=== PATIENT | male | born 1960 | race Caucasian/White ===

== ENCOUNTER 2017-02-01 10:54 | Inpatient (IN) | payer MEDICAID ==
[~2017-02-01] VITALS: Ht 182.9 cm; Wt 107.0 kg
[2017-02-01 11:43] LABS: BASOPHIL % 0.3 % (0-2); PLATELET COUNT 263 x10^3mcL (130-400); RED CELL DISTRIBUTION WIDTH 13.9 % (11.5-14.5)
[2017-02-01 11:50] LABS: CALCIUM 8.2 mg/dL (8.5-10.1); CARBON DIOXIDE 20.6 mmol/L (21-32); CHLORIDE SERUM 103 mmol/L (98-107); CREATININE SERUM 1.1 mg/dL (0.7-1.3); GFR1 > 60 mL/min; GLUCOSE SERUM 123 mg/dL (74-106); POTASSIUM SERUM 3.9 mmol/L (3.5-5.1); SODIUM SERUM 134 mmol/L (136-145)
[2017-02-01 11:56] LABS: ALKALINE PHOSPHATASE 103 U/L (46-116); ALT/SGPT 55 U/L (16-63); AST/SGOT 39 U/L (15-37); BILIRUBIN TOTAL 1.2 mg/dL (0.20-1.00); TOTAL PROTEIN, SERUM 6.9 g/dL (6.4-8.2)
[2017-02-01 11:57] LABS: ALBUMIN 3.2 g/dL (3.4-5.0)
[2017-02-01 13:04] LABS: microscopic required? YES; urine erythrocyte TRACE (NEGATIVE)
[2017-02-01 15:04] VITALS: BP 165/102
[2017-02-01 16:15] LABS: CHOLESTEROL/HDL RATIO 2.3; MAGNESIUM 1.6 mg/dL (1.8-2.4); PHOSPHOROUS 3.7 mg/dL (2.5-4.9)
[2017-02-01 16:24] LABS: FREE T4 0.99 ng/dL (0.76-1.46)
[2017-02-01 16:25] LABS: T3 TOTAL 0.89 ng/mL
[2017-02-01 16:37] LABS: FREE THYROXINE INDEX 1.7 ug/dL (1.4-4.5); T4(THYROXINE) 4.6 ug/dL (4.7-13.3)
[2017-02-01 17:22] VITALS: BP 165/102
[2017-02-01 21:46] VITALS: BP 115/75
[2017-02-02 06:21] VITALS: BP 133/108
[2017-02-02 07:00] LABS: BASOPHIL % 0.6 % (0-2); PLATELET COUNT 239 x10^3mcL (130-400); RED CELL DISTRIBUTION WIDTH 13.6 % (11.5-14.5)
[2017-02-02 07:13] LABS: CALCIUM 8.6 mg/dL (8.5-10.1); CARBON DIOXIDE 23.4 mmol/L (21-32); CHLORIDE SERUM 103 mmol/L (98-107); CREATININE SERUM 1.1 mg/dL (0.7-1.3); GFR1 > 60 mL/min; GLUCOSE SERUM 105 mg/dL (74-106); MAGNESIUM 2.2 mg/dL (1.8-2.4); POTASSIUM SERUM 3.7 mmol/L (3.5-5.1); SODIUM SERUM 137 mmol/L (136-145)
[2017-02-02 10:37] VITALS: BP 136/98
[2017-02-02 13:48] VITALS: BP 126/98
[2017-02-02 17:47] VITALS: BP 139/101
[2017-02-02 20:53] VITALS: BP 130/89
[2017-02-03 04:18] LABS: CALCIUM 8.4 mg/dL (8.5-10.1); CHLORIDE SERUM 102 mmol/L (98-107); GFR1 > 60 mL/min; GLUCOSE SERUM 105 mg/dL (74-106); MAGNESIUM 1.7 mg/dL (1.8-2.4); PHOSPHOROUS 3.6 mg/dL (2.5-4.9); POTASSIUM SERUM 3.3 mmol/L (3.5-5.1); SODIUM SERUM 138 mmol/L (136-145)
[2017-02-03 04:47] LABS: BASOPHIL % 0.9 % (0-2); PLATELET COUNT 227 x10^3mcL (130-400); RED CELL DISTRIBUTION WIDTH 13.9 % (11.5-14.5)
[2017-02-03 05:22] VITALS: BP 122/103
[2017-02-03 09:59] VITALS: BP 129/98
[2017-02-03 13:01] VITALS: BP 145/92
[2017-02-03 16:43] VITALS: BP 97/65
[2017-02-03 21:02] VITALS: BP 98/70
[2017-02-04 05:29] VITALS: BP 123/71
[2017-02-04 08:08] VITALS: BP 132/95
[2017-02-04 08:58] LABS: ALKALINE PHOSPHATASE 95 U/L (46-116); ALT/SGPT 35 U/L (16-63); AST/SGOT 23 U/L (15-37); BILIRUBIN DIRECT 0.28 mg/dL (0.0-0.2); BILIRUBIN TOTAL 0.7 mg/dL (0.20-1.00); CARBON DIOXIDE 27.6 mmol/L (21-32); CHLORIDE SERUM 102 mmol/L (98-107); CREATININE SERUM 1.2 mg/dL (0.7-1.3); GFR1 > 60 mL/min; GLUCOSE SERUM 111 mg/dL (74-106); POTASSIUM SERUM 3.7 mmol/L (3.5-5.1); SODIUM SERUM 139 mmol/L (136-145); TOTAL PROTEIN, SERUM 7.3 g/dL (6.4-8.2)
[2017-02-04 09:02] LABS: ALBUMIN 3.1 g/dL (3.4-5.0)
[2017-02-04 09:53] LABS: MAGNESIUM 2.3 mg/dL (1.8-2.4)
[2017-02-04 12:00] VITALS: BP 105/76
[2017-02-04 13:18] VITALS: BP 111/87
[2017-02-04 14:45] VITALS: BP 111/87
[2017-02-04] MEDS ORDERED: COR200 PO (14:51)
[2017-02-04] MEDS ORDERED: ZES20 PO (14:51)
[2017-02-04] MEDS ORDERED: TOP50 PO ×2 (14:51→15:59)
[2017-02-04] MEDS ORDERED: ALD25 PO (14:52)
[2017-02-04] MEDS ORDERED: COU10 PO ×2 (15:09→15:59)
[2017-02-04] MEDS ORDERED: TOPROL XL25 MG PO (15:59)
[2017-02-04] MEDS ORDERED: COUMADIN5 MG PO (15:59)
[2017-02-04] MEDS ORDERED: FUROSEMIDE40 MG PO (16:16)
== END 2017-02-04 16:15 | disposition home or self-care (01) | DRG 133 ==
LOC: ED 10:54 → DU 13:21
PROVIDERS: Emergency Medicine; Family Medicine; ADMIT Family Medicine
DX: J96.00 Acute respiratory failure, unspecified whether with hypoxia or hypercapnia (principal); N17.0 Acute kidney failure with tubular necrosis; I50.43 Acute on chronic combined systolic (congestive) and diastolic (congestive) heart failure; E44.0 Moderate protein-calorie malnutrition; E87.2 Acidosis; I48.91 Unspecified atrial fibrillation; E87.1 Hypo-osmolality and hyponatremia; I16.0 Hypertensive urgency; R73.03 Prediabetes; J44.1 Chronic obstructive pulmonary disease with (acute) exacerbation; F10.20 Alcohol dependence, uncomplicated; E66.9 Obesity, unspecified; Z68.32 Body mass index [BMI] 32.0-32.9, adult
CPT/HCPCS: 82962; 83880; 84439; G0480; J1644; J1940; J3475; J3480; J3490; J7030; J7050; J7613; J7644; Q0092

== ENCOUNTER 2017-05-15 12:17 | Inpatient (IN) | payer OTHER ==
[~2017-05-15] VITALS: Ht 182.9 cm; Wt 103.0 kg
[~2017-05-15 12:17] MED LIST: ALD25 PO; COR200 PO; COU10 PO; COUMADIN5 MG PO; FUROSEMIDE40 MG PO; TOP50 PO; TOPROL XL25 MG PO; ZES20 PO
--- NOTE | 2017-05-15 12:50 | NUR ---
DR. CESAR AT BEDSIDE FOR MSE. SEE ED ASSESSMENT FOR NOTES. COMFORT MEASURES IMPLEMENTED. CM ATTACHED. RESPS E/U. NO S/S OF DISTRESS NOTED. WILL CONTINUE TO MONITOR.
--- NOTE | 2017-05-15 12:54 | NUR ---
MEDICATED ORDERED. PLEASE SEE EMR.
[2017-05-15 13:03] LABS: BASOPHIL % 0.8 % (0-2); PLATELET COUNT 178 x10^3mcL (130-400)
[2017-05-15 13:06] LABS: CALCIUM 8.4 mg/dL (8.5-10.1); CARBON DIOXIDE 26.2 mmol/L (21-32); CHLORIDE SERUM 101 mmol/L (98-107); GFR1 > 60 mL/min; GLUCOSE SERUM 128 mg/dL (74-106); POTASSIUM SERUM 4.2 mmol/L (3.5-5.1); SODIUM SERUM 137 mmol/L (136-145)
[2017-05-15 13:11] LABS: ALBUMIN 3.5 g/dL (3.4-5.0); ALKALINE PHOSPHATASE 84 U/L (46-116); ALT/SGPT 82 U/L (16-63); AST/SGOT 88 U/L (15-37); BILIRUBIN TOTAL 1.46 mg/dL (0.20-1.00); CHOLESTEROL 200 mg/dL (<200); LIPASE 152 IU/L (73-393); TOTAL PROTEIN, SERUM 7.3 g/dL (6.4-8.2); TRIGLYCERIDES 91 mg/dL (<150)
[2017-05-15 13:12] LABS: RED CELL DISTRIBUTION WIDTH 18.5 % (11.5-14.5)
--- NOTE | 2017-05-15 13:15 | NUR ---
PT IN ROUTE TO CT SCAN.
[2017-05-15 13:16] LABS: CHOLESTEROL/HDL RATIO 1.6; HDL CHOLESTEROL 123 mg/dL (40-60)
[2017-05-15 13:18] LABS: T3 TOTAL 0.78 ng/mL
[2017-05-15 13:22] LABS: FREE T4 0.75 ng/dL (0.76-1.46); FREE THYROXINE INDEX 2.2 ug/dL (1.4-4.5); T4(THYROXINE) 5.9 ug/dL (4.7-13.3)
--- NOTE | 2017-05-15 14:07 | NUR ---
MEDICATED ORDERED. PLEASE SEE EMR.
[2017-05-15] MEDS ORDERED: ASPIR 8181 MG PO (14:11)
[2017-05-15] MEDS ORDERED: CARVEDILOL3.125 M1 PO (14:12)
--- NOTE | 2017-05-15 14:30 | NUR ---
REPORT GIVEN TO ANABELA MEYER FOR CONTINUATION OF CARE OF PT.
[2017-05-15 14:39] LABS: MAGNESIUM 1.4 mg/dL (1.8-2.4)
[2017-05-15 14:55] LABS: microscopic required? YES; urine erythrocyte TRACE (NEGATIVE)
[2017-05-15 14:59] VITALS: BP 151/113
[2017-05-15 15:04] LABS: AMPHETAMINE QUAL UR POSITIVE (NEG <=1000)
--- NOTE | 2017-05-15 15:09 | NUR ---
RECEIVED PATIENT FROM ED VIA GUERNEY, PATIENT ALERT AND ORIENTED, TELE # 3 ST/AFIB W RVR, IV ACCESS TO LAC WNL, C/O PAIN TO LEFT HIP STATES FROM [place], WILL MEDICATE ORDERED, NO C/O SOB AT THIS TIME, ORIENTED, PATIENT TO ROOM AND SURROUNDINGS, BED IN LOW POSIITON, BED RAILS UP X 2, CALL LIGHT WITHIN REACH, WILL ENDORSE CARE TO PRIMARY NURSE MANA PEÑALOZA
--- NOTE | 2017-05-15 15:27 | NUR ---
DR. BOOTH-RESIDENT WAS AT BEDSIDE AND WAS INFORMED OF THE PATIENT'S HIGH DBP>100, HR OF AFIB, AND MAGNESIUM LEVEL 1.4. DOCTOR WILL CHECK THE PATIENT AND GIVE OUT THE ORDER.
[2017-05-15 17:25] VITALS: BP 140/90
--- NOTE | 2017-05-15 18:51 | NUR ---
THE PATIENT WAS RESTING IN BED WITHOUT DISTRESS AFTER HAVING DINNER. THE BLOOD PRESSURE WAS TRENDING DOWN TO 140/90 AFTER LOPRESSOR 25MG PO WAS GIVEN TO THE PATIENT AT [address] BOOTH-RESIDENT WAS INFORMED AGAIN OF THE PATIENT'S MG LEVEL WAS 1.4.
--- NOTE | 2017-05-15 19:22 | NUR ---
RECEIVED PT IN BED AWAKE AND RESTING QUIETLY IN BED. HE IS ALERT,ORIENTED X4 W/ CLEAR SPEECH. NO SOB ON RA. W/ CLEAR BREATH SOUNDS; BOWEL SOUNDS ACTIVE. PT W/ NO C/O CHEST PAIN OR PALPITATIONS AT THIS TIME. CALL LIGHT W/IN REACH.
[2017-05-15 20:36] VITALS: BP 132/97
[2017-05-15 20:54] VITALS: BP 132/97
--- NOTE | 2017-05-16 01:20 | NUR ---
PT APPEARS TO BE SLEEPING COMFORTABLY. HE IS EASILY AROUSABLE AND ANSWERED APPROPRIATELY. NO NEURO CHANGES.
--- NOTE | 2017-05-16 04:21 | NUR ---
PT AWAKE AND QUIETLY WATCHING TV. HE IS ORIENTED X4 W/ CLEAR SPEECH. PT DENIED ANY DISCOMFORT AT THIS TIME. NO NEURO CHANGES NOTED.
[2017-05-16 06:13] VITALS: BP 133/107
[2017-05-16 06:23] LABS: CALCIUM 8.5 mg/dL (8.5-10.1); CARBON DIOXIDE 27.1 mmol/L (21-32); CHLORIDE SERUM 101 mmol/L (98-107); GFR1 > 60 mL/min; GLUCOSE SERUM 97 mg/dL (74-106); MAGNESIUM 1.5 mg/dL (1.8-2.4); SODIUM SERUM 136 mmol/L (136-145)
[2017-05-16 06:24] LABS: BASOPHIL % 0.3 % (0-2); PLATELET COUNT 148 x10^3mcL (130-400)
[2017-05-16 06:27] LABS: RED CELL DISTRIBUTION WIDTH 18.5 % (11.5-14.5)
--- NOTE | 2017-05-16 06:40 | NUR ---
PT SLEPT THROUGH THE NIGHT. HE REMAINS ALERT AND ORIENTED X4. NO EPISODE OF AGITATION. PT W/ SLIGHT TREMORS TO HANDS WHEN HOLDING SOMETHING. PT ON NPO FOR U/S ABDOMEN. HL TO LT AC INTACT.
--- NOTE | 2017-05-16 07:20 | NUR ---
ENDORSED PT TO AM NURSE. BP [id number]=213/103 HR=86 .
[2017-05-16 07:24] VITALS: BP 132/103
--- NOTE | 2017-05-16 07:32 | NUR ---
A+OX4, NO RESPIRATORY DISTRESS NOTED, DENIES PAIN, DENIES CHEST PAIN, TELE 3, PULSES MODERATE AND EQUAL FILIPPO, TRACE EDEMA BLE, SCDS ON, LUNG SOUNDS CTA, TOLERATING RA, BOWEL SOUNDS ACTIVE, VOIDING, GENERALIZED WEAKNESS, SKIN INTACT, IV IN LAC, SITE WNL, RBC 3.62, HGB 12.8, HCT 37, PT 12.6, MG 1.5.
--- NOTE | 2017-05-16 09:34 | NUR ---
PT RESTING IN BED, NO RESPIRATORY DISTRESS NOTED, DENIES PAIN. ANXIOUS, ATIVANM GIVEN.
[2017-05-16 09:35] VITALS: BP 143/101
--- NOTE | 2017-05-16 11:08 | NUR ---
PT RESTING IN BED, NO RESPIRATORY DISTRESS NOTED, COMPLAINING OF HIP PAIN BUT DECLINES PAIN MEDS.
--- NOTE | 2017-05-16 12:16 | NUR ---
PT RESTING IN BED, DENIES PAIN, NO RESPRIATORY DISTRESS NOTED.
--- NOTE | 2017-05-16 14:00 | NUR ---
PT RESTING IN BED, STUDENT AT BEDSIDE, NO RESPRIATORY DISTRESS NOTED, DENIES PAIN.
--- NOTE | 2017-05-16 14:46 | NUR ---
PT RESTING IN BED, NO RESPIRATORY DISTRESS NOTED, DENIES PAIN.
--- NOTE | 2017-05-16 14:56 | NUR ---
PT AMBULATED TO BATHROOM AND BACK TO BED INDEPENDENTLY, NO RESPRIATORY DISTRESS NOTED.
[2017-05-16 15:23] LABS: RED BLOOD CELLS 3.61 M/mm3 (4.52-5.90)
[2017-05-16 15:24] LABS: IRON 53 ug/dL (65-170); TOTAL IRON BINDING CAPACITY 217 ug/dL (250-450)
[2017-05-16 15:39] VITALS: BP 128/93
--- NOTE | 2017-05-16 15:41 | NUR ---
PT RESTING IN BED, NO RESPIRATORY DISTRESS NOTED, DENIES PAIN.
--- NOTE | 2017-05-16 16:28 | NUR ---
PT RESTING IN BED, NO RESPRIATORY DISTRESS NOTED, DENIES PAIN.
--- NOTE | 2017-05-16 16:45 | NUR ---
COUMADIN 10 MG PO DOSE VERIFIED WITH DR OROPEZA. PER ENRIKE GAGE TO GIVE.
[2017-05-16 17:31] VITALS: BP 133/104
--- NOTE | 2017-05-16 18:04 | NUR ---
PT RESTING IN BED, NO RESPIRATORY DISTRESS NOTED, DENIES PAIN.
--- NOTE | 2017-05-16 18:50 | NUR ---
PT RESTING IN BED, NO RESPIRATORY DISTRESS NOTED, DENIES PAIN.
[2017-05-16 19:25] VITALS: BP 130/96
--- NOTE | 2017-05-16 19:25 | NUR ---
RECEIVED PT AWAKE ALERT AND VERBALLY RESPONSIVE.DENIES CHESTPAIN/PALPITATIONS AT THIS TIME.BP 130/96 MMHG,HR 126.NUMBNESS TO RIGHT FINGERS AND R FOOT MUCH BETTER .C/O CONSTANT HIP PAIN BUT DENIES ANY NEED FOR PAIN MEDS AT THIS TIME.WILL CONTINUE TO MONITOR.
[2017-05-17] VITALS (7 sets, daily range): BP systolic 99–127; BP diastolic 57–105
--- NOTE | 2017-05-17 03:20 | NUR ---
PT ASKING FOR COUGH MEDICATION AT THIS TIME,REPORT OF ON AND OFF COUGHING WHICH PT FEELS JUST STARTED.DENIES COUGING OUT PHLEGM.DR. PICKARD MADE AWARE WITH NEW ORDERS MADE AND WILL CARRY OUT.
[2017-05-17 07:32] LABS: BASOPHIL % 0.2 % (0-2); PLATELET COUNT 145 x10^3mcL (130-400); RED CELL DISTRIBUTION WIDTH 18.2 % (11.5-14.5)
--- NOTE | 2017-05-17 07:41 | NUR ---
A+OX4, NO RESPIRATORY DISTRESS NOTED, COMPLAINING OF COUGH, TELE 3, PULSES MODERATE AND EQUAL FILIPPO, TRACE EDEMA BLE, SCDS ON, TOELRATING RA, BOWEL SOUNDS ACTIVE, VOIDING, GENERALIZED WEAKNESS, AMBULATORY, SKIN INTACT, IV IN LAC, SITE WNL, RBC 3.38, HGB 11.8, HCT 35.
[2017-05-17 07:52] LABS: CALCIUM 8.6 mg/dL (8.5-10.1); CARBON DIOXIDE 26.2 mmol/L (21-32); CHLORIDE SERUM 98 mmol/L (98-107); CREATININE SERUM 1.1 mg/dL (0.7-1.3); GFR1 > 60 mL/min; GLUCOSE SERUM 90 mg/dL (74-106); MAGNESIUM 1.7 mg/dL (1.8-2.4); PHOSPHOROUS 3.2 mg/dL (2.5-4.9); POTASSIUM SERUM 4.7 mmol/L (3.5-5.1); SODIUM SERUM 131 mmol/L (136-145)
--- NOTE | 2017-05-17 08:58 | NUR ---
PT RESTING IN BED, NO RESPIRATORY DISTRESS NOTED, DENIES PAIN.
--- NOTE | 2017-05-17 11:55 | NUR ---
PT RESTING IN BED NO RESPIRATORY DISTRESS NOTED, DENIES PAIN, CARDIZEM GIVEN PER DR OROPEZA ORDERS. DENIES PAIN.
--- NOTE | 2017-05-17 13:12 | NUR ---
PER DR OROPEZA, ATIVAN IV GIVEN TO POSSIBLY HELP WITH ST, NO REPSIRATORY DISTRESS NOTED.
--- NOTE | 2017-05-17 13:43 | NUR ---
AFTER ATIVAN IV ADMINISTRATION, HR 126. DR OROPEZA NOTIFIED. PER DR OROPEZA PT WILL NOT BE DISCHARGED TODAY.
--- NOTE | 2017-05-17 15:46 | NUR ---
PT RESTING IN BED, NO RESPIRATORY DISTRESS NOTED.
--- NOTE | 2017-05-17 17:07 | NUR ---
PT RESTING IN BED, NO RESPIRATORY DISTRESS NOTED, INQUIRING ABOUT DISCHARGE TOMMOROW, DENIES PAIN.
--- NOTE | 2017-05-17 19:30 | NUR ---
PT A/O X4. TELE #3, ST AT 126 WITH DEPRESSED TWAVE, DENIES CHEST PAIN. PULSES PALPABLE, TRACE EDEMA TO BLE. LUNG SOUNDS CTA, BREATHING FREELY ON RA, DENIES SOB, BUT ADMITS TO COUGH. ABD SOFT AND ROUND, BOWEL TONES ACTIVE, DENIES N/V, LBM-TODAY. VOIDS ADEQUATELY USING URINAL. BRP, GENERALIZED WEAKNESS, AMBULATORY. SKIN IS INTACT. DENIES PAIN AT THIS TIME. IVF INFUSING WELL TO LAC, NS @ 50 ML/HR. BED IN LOWEST SETTING, SIDE RAILS UP X2, CALL LIGHT WITHIN REACH. WILL CONTINUE TO MONITOR.
--- NOTE | 2017-05-17 22:44 | NUR ---
PT REQUESTING TO LEAVE AMA AT THIS TIME. DR PICKARD AT BEDSIDE EXPLAINING THE RISKS OF LEAVING AMA. PT VOICES UNDERSTANDING, BUT STILL WISHES TO LEAVE AMA. PAPERWORK SIGNED. IV TO LAC DC'd, CATHETER INTACT. TELE #3 RETURNED TO CUPOLA MAN. PT LEFT FLOOR IN STABLE CONDITION.
[2017-05-18] MEDS ORDERED: COUMADIN5 MG PO (05:33)
== END 2017-05-17 22:35 | disposition left against medical advice (07) | DRG 812 ==
LOC: ED 12:17 → DU 14:05
PROVIDERS: Specialist; ADMIT Family Medicine Sports Medicine
DX: T43.621A Poisoning by amphetamines, accidental (unintentional), initial encounter (principal); J96.00 Acute respiratory failure, unspecified whether with hypoxia or hypercapnia; I50.43 Acute on chronic combined systolic (congestive) and diastolic (congestive) heart failure; I48.91 Unspecified atrial fibrillation; E83.42 Hypomagnesemia; F15.10 Other stimulant abuse, uncomplicated; I16.0 Hypertensive urgency; I11.0 Hypertensive heart disease with heart failure; R73.03 Prediabetes; R74.0 Nonspecific elevation of levels of transaminase and lactic acid dehydrogenase [LDH]; D53.9 Nutritional anemia, unspecified; E03.9 Hypothyroidism, unspecified; F10.239 Alcohol dependence with withdrawal, unspecified; E66.9 Obesity, unspecified; Z68.30 Body mass index [BMI] 30.0-30.9, adult; Y92.009 Unspecified place in unspecified non-institutional (private) residence as the place of occurrence of the external cause
CPT/HCPCS: 82962; 83880; 84439; 94150; G0480; J2060; J3475; J3490; J7030; Q0092

== ENCOUNTER 2017-10-01 13:55 | Inpatient (IN) | payer OTHER ==
[~2017-10-01] VITALS: Ht 182.9 cm; Wt 98.5 kg
[~2017-10-01 13:55] MED LIST changes: +ASPIR 8181 MG PO; +CARVEDILOL3.125 M1 PO
[2017-10-01 14:44] LABS: PLATELET COUNT 313 x10^3mcL (130-400)
[2017-10-01 14:50] LABS: CARBON DIOXIDE 30.3 mmol/L (21-32); CHLORIDE SERUM 95 mmol/L (98-107); CREATININE SERUM 0.7 mg/dL (0.7-1.3); GFR1 > 60 mL/min; GLUCOSE SERUM 144 mg/dL (74-106); POTASSIUM SERUM 4.3 mmol/L (3.5-5.1); SODIUM SERUM 131 mmol/L (136-145)
[2017-10-01 14:54] LABS: RED CELL DISTRIBUTION WIDTH 15.4 % (11.5-14.5)
[2017-10-01 14:55] LABS: ALBUMIN 2.5 g/dL (3.4-5.0); ALKALINE PHOSPHATASE 88 U/L (46-116); ALT/SGPT 23 U/L (16-63); AST/SGOT 25 U/L (15-37); BILIRUBIN TOTAL 1.71 mg/dL (0.20-1.00); TOTAL PROTEIN, SERUM 7.1 g/dL (6.4-8.2)
[2017-10-01 15:08] LABS: BAND NEUTROPHIL 0 % (0-10); BASOPHIL 0 % (0-2); MONOCYTE 7 % (0-7); SEGMENTED NEUTROPHILS 91 % (37-75)
[2017-10-01 15:09] LABS: rbc morphology (normal/abnorm) ABNORMAL (NORMAL)
[2017-10-01 15:11] LABS: PLATELET MORPHOLOGY LARGE PLATELET SEEN
[2017-10-01 17:31] VITALS: BP 172/106
[2017-10-01] MEDS ORDERED: DIGITEK250 MCG PO (18:59)
[2017-10-01] MEDS ORDERED: FUROSEMIDE40 MG PO (19:00)
[2017-10-01] MEDS ORDERED: AMIODARONE HCL200 MG PO (19:00)
[2017-10-01] MEDS ORDERED: CARVEDILOL12.5 M1 PO (19:02)
[2017-10-01] MEDS ORDERED: SPIRONOLACTONE25 MG PO (19:02)
[2017-10-01 21:15] LABS: RED BLOOD CELLS 3.22 M/mm3 (4.52-5.90)
[2017-10-01 21:50] LABS: MAGNESIUM 1.8 mg/dL (1.8-2.4); PHOSPHOROUS 3.3 mg/dL (2.5-4.9)
[2017-10-01 21:53] VITALS: BP 126/75
[2017-10-01 21:53] LABS: CHOLESTEROL/HDL RATIO 3.6
[2017-10-01 21:59] LABS: IRON 44 ug/dL (65-170)
[2017-10-01 22:01] LABS: TOTAL IRON BINDING CAPACITY 192 ug/dL (250-450)
[2017-10-01 22:05] LABS: FREE T4 1.2 ng/dL (0.76-1.46); FREE THYROXINE INDEX 2.4 ug/dL (1.4-4.5); T4(THYROXINE) 6.2 ug/dL (4.7-13.3)
[2017-10-01 22:24] LABS: T3 TOTAL 0.73 ng/mL
[2017-10-02 01:26] LABS: UA SPECIFIC GRAVITY >=1.030 (1.005-1.035); microscopic required? YES; urine erythrocyte NEGATIVE (NEGATIVE)
[2017-10-02 01:34] LABS: AMPHETAMINE QUAL UR NONE DETECTED (NEG <=1000)
[2017-10-02 05:55] VITALS: BP 108/54
[2017-10-02 06:34] LABS: BASOPHIL % 0.1 % (0-2); PLATELET COUNT 249 x10^3mcL (130-400)
[2017-10-02 06:42] LABS: RED CELL DISTRIBUTION WIDTH 15.5 % (11.5-14.5)
[2017-10-02 06:57] LABS: CALCIUM 8.8 mg/dL (8.5-10.1); CARBON DIOXIDE 29.5 mmol/L (21-32); CHLORIDE SERUM 98 mmol/L (98-107); CREATININE SERUM 0.5 mg/dL (0.7-1.3); GFR1 > 60 mL/min; GLUCOSE SERUM 108 mg/dL (74-106); MAGNESIUM 1.9 mg/dL (1.8-2.4); PHOSPHOROUS 3.4 mg/dL (2.5-4.9); SODIUM SERUM 134 mmol/L (136-145)
[2017-10-02 09:30] VITALS: BP 112/61
[2017-10-02 09:35] VITALS: BP 105/61
[2017-10-02 13:40] VITALS: BP 114/62
[2017-10-02 17:30] VITALS: BP 101/54
[2017-10-02 20:48] VITALS: BP 105/46
[2017-10-03 05:38] VITALS: BP 103/48
[2017-10-03 06:44] LABS: CALCIUM 8.6 mg/dL (8.5-10.1); CARBON DIOXIDE 27.7 mmol/L (21-32); CHLORIDE SERUM 99 mmol/L (98-107); CREATININE SERUM 1.1 mg/dL (0.7-1.3); GFR1 > 60 mL/min; GLUCOSE SERUM 120 mg/dL (74-106); POTASSIUM SERUM 4.5 mmol/L (3.5-5.1); SODIUM SERUM 131 mmol/L (136-145)
[2017-10-03 08:02] LABS: PLATELET COUNT 332 x10^3mcL (130-400)
[2017-10-03 08:03] LABS: BASOPHIL % 0 % (0-2)
[2017-10-03 09:10] VITALS: BP 112/48
[2017-10-03 13:00] VITALS: BP 120/73
[2017-10-03 16:50] VITALS: BP 103/57
[2017-10-03 23:09] VITALS: BP 120/61
[2017-10-04] MEDS ORDERED: FLO4 PO (06:22)
[2017-10-04 06:23] VITALS: BP 117/54
[2017-10-04] MEDS ORDERED: CYCLOBENZAPRINE5 MG PO (06:23)
[2017-10-04] MEDS ORDERED: ZES20 PO (06:25)
[2017-10-04] MEDS ORDERED: NEU300 PO (06:26)
[2017-10-04 06:37] LABS: PLATELET COUNT 308 x10^3mcL (130-400)
[2017-10-04 06:38] LABS: BASOPHIL % 0 % (0-2); RED CELL DISTRIBUTION WIDTH 15.8 % (11.5-14.5)
[2017-10-04 06:48] LABS: CALCIUM 8.7 mg/dL (8.5-10.1); CARBON DIOXIDE 28.6 mmol/L (21-32); CHLORIDE SERUM 101 mmol/L (98-107); CREATININE SERUM 1.1 mg/dL (0.7-1.3); GFR1 > 60 mL/min; GLUCOSE SERUM 100 mg/dL (74-106); MAGNESIUM 2.1 mg/dL (1.8-2.4); PHOSPHOROUS 3.5 mg/dL (2.5-4.9); POTASSIUM SERUM 4.3 mmol/L (3.5-5.1); SODIUM SERUM 136 mmol/L (136-145)
[2017-10-04 09:12] VITALS: BP 110/64
[2017-10-04 09:19] VITALS: BP 110/64
[2017-10-04 13:17] VITALS: BP 121/56
[2017-10-04 16:00] VITALS: BP 112/64
[2017-10-04 20:36] VITALS: BP 114/66
[2017-10-04 20:43] VITALS: Ht 182.9 cm; Wt 98.5 kg
== END 2017-10-04 22:45 | disposition short-term general hospital (02) | DRG 812 ==
LOC: ED 13:55 → DU 16:08
PROVIDERS: Emergency Medicine; Family Medicine
DX: T40.601A Poisoning by unspecified narcotics, accidental (unintentional), initial encounter (principal); N17.0 Acute kidney failure with tubular necrosis; E43 Unspecified severe protein-calorie malnutrition; I50.43 Acute on chronic combined systolic (congestive) and diastolic (congestive) heart failure; I48.91 Unspecified atrial fibrillation; G92 Toxic encephalopathy; I42.0 Dilated cardiomyopathy; R00.1 Bradycardia, unspecified; I11.0 Hypertensive heart disease with heart failure; M47.9 Spondylosis, unspecified; J44.9 Chronic obstructive pulmonary disease, unspecified; D64.9 Anemia, unspecified; M54.2 Cervicalgia; F10.20 Alcohol dependence, uncomplicated; Y90.9 Presence of alcohol in blood, level not specified; G90.8 Other disorders of autonomic nervous system; N39.0 Urinary tract infection, site not specified; Z68.29 Body mass index [BMI] 29.0-29.9, adult; Z88.3 Allergy status to other anti-infective agents; Z83.6 Family history of other diseases of the respiratory system; E78.5 Hyperlipidemia, unspecified; E02 Subclinical iodine-deficiency hypothyroidism; E87.1 Hypo-osmolality and hyponatremia; Y92.89 Other specified places as the place of occurrence of the external cause; I16.0 Hypertensive urgency; Z91.19 Patient's noncompliance with other medical treatment and regimen
CPT/HCPCS: 83880; 84439; 97110-GP; 97530-GP; G0480; J1100; J1885; J2270; J2405; J2543; J7030; J7040; Q0092